=== PATIENT | female | born 1990 | race Native Hawaiian/Other Pacific Islander ===

== ENCOUNTER 2021-10-31 15:12 | Outpatient (CLI) | payer BC ==
[2021-10-31 16:06] LABS: PLATELET COUNT 270 K/uL (152-353)
[2021-10-31 16:11] LABS: POTASSIUM 3.8 mmol/L (3.6-5.2)
== END 2021-10-31 19:07 | disposition home or self-care (01) ==
LOC: LABW 15:12
PROVIDERS: ATTEND Internal Medicine
DX: R10.32 Left lower quadrant pain (principal); R19.5 Other fecal abnormalities
CPT/HCPCS: 36415; 80053; 82150; 82272; 83630; 83690; 85027; 87324; 87328; 87449; 87507